=== PATIENT | male | born 1990 | race Hispanic/Latino ===

== ENCOUNTER 2018-10-25 00:41 | Emergency (ER) | payer BC ==
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
[2018-10-25 04:54] VITALS: BP 116/73; PULSE 81; RESP 17; TEMP 98.4; O2SAT 100
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
== END 2018-10-25 04:03 | disposition home or self-care (01) ==
LOC: H.ER 00:41
DX: H66.90 Otitis media, unspecified, unspecified ear (principal); F07.81 Postconcussional syndrome; H91.90 Unspecified hearing loss, unspecified ear; S09.90XA Unspecified injury of head, initial encounter